=== PATIENT | female | born 1960 | race Hispanic/Latino ===

== ENCOUNTER 2018-05-11 12:11 | Emergency (ER) | payer SELFPAY ==
[2018-05-11 12:34] VITALS: BP 134/54
[2018-05-11] MEDS ORDERED: NACL 0.9% 500 ML 500 ML IV ONE (12:34)
[2018-05-11 13:53] LABS: Basophils % (Auto) 0.3 % (0.0-1.8); Eosinophils % (Auto) 0.3 % (0.0-4.3); Hematocrit 38.5 % (30.3-42.9); Hemoglobin 12.9 gm/dl (10.1-14.3); Lymphocytes # (Auto) 2.4 K/mm3 (1.2-5.4); Lymphocytes % (Auto) 14.9 % (13.4-35.0); Mean Corpuscular HGB Conc 34 % (30-34); Mean Corpuscular Hemoglobin 33 pg (28-32); Mean Corpuscular Volume 97 fl (79-97); Monocytes # (Auto) 1.9 K/mm3 (0.0-0.8); Monocytes % (Auto) 11.8 % (0.0-7.3); Platelet Count 275 K/mm3 (140-440); Red Blood Count 3.95 M/mm3 (3.65-5.03)
[2018-05-11 14:13] LABS: Alanine Aminotransferase 15 units/L (7-56); Albumin 3.2 g/dL (3.9-5); BUN/Creatinine Ratio 33; Blood Urea Nitrogen 13 mg/dL (7-17); Calcium 9.3 mg/dL (8.4-10.2); Hemolysis Index 80
--- NOTE | 2018-05-11 14:19 | XRay Report ---
ROUTINE CHEST, TWO VIEWS: HISTORY: Possible sepsis. Mild emphysematous changes are suspected in the upper lobes. The lungs are mildly hyperinflated. No evidence for infiltrate, pleural effusion or pneumothorax. Normal heart and mediastinal structures. Normal bony thorax. IMPRESSION: Emphysematous changes. No acute process.
[2018-05-11] MEDS ORDERED: XYLOCAINE 1% MPF 5 mL ONE (16:59)
[2018-05-11] MEDS ORDERED: XYLOCAINE 1% MPF 5 mL INFILTRATI ONE (17:03)
--- NOTE | 2018-05-11 17:23 | Emergency Department Report ---
- General Chief complaint: Skin/Abscess/Foreign Body Stated complaint: PAIN SWELLING Time Seen by Provider: 05/11/18 16:24 Source: patient, family Mode of arrival: Ambulatory Limitations: No Limitations, Altered Mental Status - History of Present Illness Initial comments: This is a 57-year-old female here report that she has abscess on her rectal area for the last 3 days and its radiating towards her vaginal area and was in process. She says she had fever at home MAXIMUM TEMPERATURE 1012 days ago but now her temperature is down. Denies any nausea vomiting or diarrhea. She's had similar incident in the past as a different area in her body. Denies any abdominal pain. Pain to abscess site is 10 out of 10 in throbbing, achy. No urinary burning, frequency or urgency. Patient says she also has lung cancer which was diagnosed today. Her primary care physician is Dr. Reis. Last colonoscopy was 02/10/2018 which she states she had precancer denies any insect bite. No medication taken for pain per patient MD complaint: abscess/boil Onset/Timin -: days(s) Tetanus Up to Date: yes Location: buttocks Severity: severe Severity scale (0 -10): 10 Quality: aching, other (throbbing ) Consistency: constant Improves with: none Worsens with: palpation, other (sitting) Context: other (abscess to buttocks) Associated symptoms: fever, chills Treatments Prior to Arrival: bandages - Related Data Previous Rx's Medication Instructions Recorded Last Taken Type Acetaminophen/Codeine [Tylenol 1 tab PO Q6H PRN #12 tab 05/11/18 Unknown Rx /Codeine # 3 tab] Cephalexin [Keflex] 500 mg PO Q12HR 10 Days #20 cap 05/11/18 Unknown Rx Ibuprofen [Motrin] 600 mg PO Q8H PRN #15 tablet 05/11/18 Unknown Rx Sulfamethoxazole/Trimethoprim 1 each PO BID 10 Days #20 tablet 05/11/18 Unknown Rx [Bactrim DS TAB] Allergies Allergy/AdvReac Type Severity Reaction Status Date / Time No Known Allergies Allergy Unverified 05/11/18 12:34 Abscess Boil HPI - HPI Chief Complaint: Skin/Abscess/Foreign Body Stated Complaint: PAIN SWELLING Time Seen by Provider: 05/11/18 16:24 Home Medications: Previous Rx's Medication Instructions Recorded Last Taken Type Acetaminophen/Codeine [Tylenol 1 tab PO Q6H PRN #12 tab 05/11/18 Unknown Rx /Codeine # 3 tab] Cephalexin [Keflex] 500 mg PO Q12HR 10 Days #20 cap 05/11/18 Unknown Rx Ibuprofen [Motrin] 600 mg PO Q8H PRN #15 tablet 05/11/18 Unknown Rx Sulfamethoxazole/Trimethoprim 1 each PO BID 10 Days #20 tablet 05/11/18 Unknown Rx [Bactrim DS TAB] Allergies/Adverse Reactions: Allergies Allergy/AdvReac Type Severity Reaction Status Date / Time No Known Allergies Allergy Unverified 05/11/18 12:34 ED Review of Systems ROS: Stated complaint: PAIN SWELLING Other details as noted in HPI Constitutional: chills, fever ENT: denies: ear pain, throat pain, congestion Respiratory: denies: cough, shortness of breath, SOB with exertion, SOB at rest , stridor, wheezing Cardiovascular: denies: chest pain, palpitations, edema, syncope Gastrointestinal: denies: abdominal pain, nausea, vomiting, diarrhea Genitourinary: denies: urgency, dysuria, hematuria, discharge Musculoskeletal: denies: back pain, joint swelling, arthralgia Skin: denies: rash, lesions Hematological/Lymphatic: denies: easy bleeding, easy bruising ED Past Medical Hx - Past Medical History Previous Medical History?: No Additional medical history: recent dx of CA - Surgical History Past Surgical History?: Yes Additional Surgical History: colonoscopy 01/2018 pre-ca polyp removed,lung bx lung 03/2018 - Family History Family history: hypertension - Social History Smoking Status: Current Every Day Smoker Substance Use Type: Alcohol - Medications Home Medications: Home Medications Medication Instructions Recorded Confirmed Last Taken Type Acetaminophen/Codeine [Tylenol 1 tab PO Q6H PRN #12 tab 05/11/18 Unknown Rx /Codeine # 3 tab] Cephalexin [Keflex] 500 mg PO Q12HR 10 Days #20 cap 05/11/18 Unknown Rx Ibuprofen [Motrin] 600 mg PO Q8H PRN #15 tablet 05/11/18 Unknown Rx Sulfamethoxazole/Trimethoprim 1 each PO BID 10 Days #20 tablet 05/11/18 Unknown Rx [Bactrim DS TAB] ED Physical Exam - General Limitations: No Limitations General appearance: alert, in no apparent distress - Head Head exam: Present: atraumatic, normocephalic, normal inspection - Eye Eye exam: Present: normal appearance, PERRL, EOMI Pupils: Present: normal accommodation - ENT ENT exam: Present: normal exam, normal orophraynx, mucous membranes moist - Neck Neck exam: Present: normal inspection, full ROM. Absent: tenderness, lymphadenopathy - Respiratory Respiratory exam: Present: normal lung sounds bilaterally. Absent: respiratory distress, chest wall tenderness - Cardiovascular Cardiovascular Exam: Present: regular rate, normal rhythm, normal heart sounds. Absent: systolic murmur, diastolic murmur - GI/Abdominal GI/Abdominal exam: Present: soft, normal bowel sounds. Absent: distended, tenderness, guarding, rebound, rigid, organomegaly, mass - Extremities Exam Extremities exam: Present: normal inspection, full ROM, normal capillary refill , other (no clubbing, cyanosis or edema.The pulses to all extremities and no neurovascular compromise). Absent: tenderness, pedal edema, joint swelling, calf tenderness - Back Exam Back exam: Present: normal inspection, full ROM, other (ambulates without any difficulties). Absent: tenderness, CVA tenderness (R), CVA tenderness (L), muscle spasm, paraspinal tenderness, vertebral tenderness, rash noted - Neurological Exam Neurological exam: Present: alert, oriented X3, normal gait, reflexes normal. Absent: motor sensory deficit - Psychiatric Psychiatric exam: Present: normal affect, normal mood - Skin Skin exam: Present: warm, dry, normal color, erythema - Expanded Skin Exam Expanded Type of lesion: Present: abscess Distribution of rash: other (right buttocks) Description of rash: Present: size (6 x 6 cm erythema with through a 3 cm indurated, fluctuant to right buttocks), tenderness, erythematous, swelling, discharge, fluctuant, indurated, other (small necrotic area noted around Center of opening where pus is drained in). Absent: vesicular, blisters, confluent, bullous, petechial, purpuic ED Course Vital Signs 05/11/18 05/11/18 12:27 17:45 Temperature 98.6 F Pulse Rate 82 Respiratory 16 18 Rate Blood Pressure 134/54 O2 Sat by Pulse 99 Oximetry - Reevaluation(s) Reevaluation #1: 05/11/18 18:08 Patient received clindamycin 600 mg IM to cover abscess and cellulitis buttocks and Percocet 5/325 2 tablets by mouth for pain. Reevaluation #2: 05/11/18 18:35 Patient pains controlled with Percocet. ED Medical Decision Making - Lab Data Result diagrams: 05/11/18 13:30 05/11/18 13:30 Lab Results 05/11/18 05/11/18 Range/Units 13:30 13:30 WBC 16.1 H (4.5-11.0) K/mm3 RBC 3.95 (3.65-5.03) M/mm3 Hgb 12.9 (10.1-14.3) gm/dl Hct 38.5 (30.3-42.9) % MCV 97 (79-97) fl MCH 33 H (28-32) pg MCHC 34 (30-34) % RDW 14.0 (13.2-15.2) % Plt Count 275 (140-440) K/mm3 Lymph % (Auto) 14.9 (13.4-35.0) % [place] % (Auto) 11.8 H (0.0-7.3) % Eos % (Auto) 0.3 (0.0-4.3) % Baso % (Auto) 0.3 (0.0-1.8) % Lymph # 2.4 (1.2-5.4) K/mm3 [place] # 1.9 H (0.0-0.8) K/mm3 Eos # 0.0 (0.0-0.4) K/mm3 Baso # 0.0 (0.0-0.1) K/mm3 Seg Neutrophils % 72.7 H (40.0-70.0) % Seg Neutrophils # 11.7 H (1.8-7.7) K/mm3 Sodium 135 L (137-145) mmol/L Potassium 4.4 (3.6-5.0) mmol/L Chloride 96.9 L (98-107) mmol/L Carbon Dioxide 21 L (22-30) mmol/L Anion Gap 22 mmol/L BUN 13 (7-17) mg/dL Creatinine 0.4 L (0.7-1.2) mg/dL Estimated GFR > 60 ml/min BUN/Creatinine Ratio 33 % Glucose 110 H (65-100) mg/dL Calcium 9.3 (8.4-10.2) mg/dL Total Bilirubin 0.50 (0.1-1.2) mg/dL AST 26 (5-40) units/L ALT 15 (7-56) units/L Alkaline Phosphatase 99 (35-129) units/L Total Protein 7.3 (6.3-8.2) g/dL Albumin 3.2 L (3.9-5) g/dL Albumin/Globulin Ratio 0.8 % Wound culture sent - Medical Decision Making This is a 57-year-old female here report that she has abscess on her right buttocks has been ongoing for 3 days. She reports pain and so she did not take any pain medication. Patient denies any medical problem but that she was diagnosed with lung cancer in its early stage today. Her primary care doctor is Dr. Reis and she is here to be evaluated for abscess on her buttocks. She doesn't have a history of diabetes. Patient was examined by myself and cellulitic area to right buttocks with abscess, positive induration and fluctuant. Also malodorous drainage coming from site with small amount of necrotic tissue surrounding opening. Please see procedure note for detail on incision and drainage. I discussed the diagnosis and treatment plan with patient and she voiced understanding. Patient was given an antibiotic and pain medication in emergency room and her pain has been controlled. Patient with abscess and cellulitis. She had incision and drainage done today and wound culture sent. Pain is controlled-she was given Percocet 5/325 mg 2 tablets by mouth in emergency room. Patient started on antibiotic clindamycin 600 mg IM for cellulitis and abscess. Patient instructed to return to emergency room in 4 days for evaluation of wound. One Packed with iodoform dressing and sterile dry dressing placed the site. Tetanus vaccine is up-to-date per patient Patient referred to wound care center and I instructed her to call tomorrow to schedule an appointment for management of wound She discharged home with her in stable condition. Vital signs are stable and she is afebrile. Pain is controlled. Discharged home with prescription for Bactrim, Keflex, Motrin and Tylenol 3. I discussed with her that she needs to follow-up with her primary care physician in 2 days and return to emergency room in 4 days for reevaluation of wound and also if condition worsens to increase increase in redness, drainage, fever and/or chills , increased pain to return to the emergency room KRISTA. She voiced understanding and discharged home in stable condition Critical care attestation.: If time is entered above; I have spent that time in minutes in the direct care of this critically ill patient, excluding procedure time. ED Disposition Clinical Impression: Cellulitis and abscess of buttock, Encounter for incision and drainage procedure Disposition: TO HOME OR SELFCARE Is pt being admited?: No Does the pt Need Aspirin: No Condition: Stable Instructions: Cellulitis (ED), Abscess Incision and Drainage (ED) Additional Instructions: Please see discharge instruction in acute wound care Apply warm compresses to affected area 4 times a day to facilitate then and increased drainage return to emergency room in 3 days for removal of packing Keep affected area clean and dry Take Tylenol 3 for severe pain and please do not drive or operate heavy machinery while taking this medication Motrin for mild to moderate pain and please take medication with food to prevent nausea or irritation to stomach lining Take Bactrim DS and Keflex for infection Please see referral to wound care center Return to the emergency room if, he developed fever, chills, increased pain and drainage from site, nausea and vomited, increase in redness and/or weakness. Prescriptions: Acetaminophen/Codeine [Tylenol /Codeine # 3 tab] 1 tab PO Q6H PRN #12 tab PRN Reason: severe pain Cephalexin [Keflex] 500 mg PO Q12HR 10 Days #20 cap Ibuprofen [Motrin] 600 mg PO Q8H PRN #15 tablet PRN Reason: mild to moderate pain Sulfamethoxazole/Trimethoprim [Bactrim DS TAB] 1 each PO BID 10 Days #20 tablet Referrals: AFSHAN REIS MD [Staff Physician] - 05/13/[facility] - 2-3 Days Forms: Work/School Release Form(ED)
[2018-05-11] MEDS ORDERED: PERCOCET 5/325 PO ONE (17:33)
[2018-05-11] MEDS ORDERED: CLEOCIN IM ONE (18:03)
[2018-05-11] MEDS ORDERED: NORCO 5/325 PO ONE (18:06)
== END 2018-05-11 18:28 | disposition home or self-care (01) ==
LOC: ED 12:11
DX: L02.31 Cutaneous abscess of buttock (principal); L03.317 Cellulitis of buttock; I10 Essential (primary) hypertension; F17.200 Nicotine dependence, unspecified, uncomplicated
CPT/HCPCS: 36415; 71046; 80053; 85025; 87116; 96372

== ENCOUNTER 2018-05-19 12:47 | Outpatient (CLI) | payer OTHER ==
[2018-05-19] MEDS ORDERED: XYLOCAINE TOPICAL 4% TP ONE ×2 (13:18→13:45)
== END 2018-05-19 12:48 | disposition home or self-care (01) ==
LOC: WOUND 12:47
PROVIDERS: ATTEND Surgery
DX: S31.819A Unspecified open wound of right buttock, initial encounter (principal); C34.12 Malignant neoplasm of upper lobe, left bronchus or lung; I73.9 Peripheral vascular disease, unspecified; F32.9 Major depressive disorder, single episode, unspecified; F41.9 Anxiety disorder, unspecified; F17.210 Nicotine dependence, cigarettes, uncomplicated; X58.XXXA Exposure to other specified factors, initial encounter; Y93.89 Activity, other specified; Y92.89 Other specified places as the place of occurrence of the external cause; Y99.8 Other external cause status
CPT/HCPCS: 99213; G0463; G0463-25